=== PATIENT | female | born 1950 | race Caucasian/White ===

== ENCOUNTER 2020-12-03 15:47 | Emergency (ER) | payer MEDICARE ==
[~2020-12-03] VITALS: Ht 162.6 cm; Wt 52.0 kg
--- NOTE | 2020-12-03 16:12 | EKG ---
[address] [address] Test Date: 2020-12-03 Test Time: 16:06:54 Pat Name: PERCY HERNANDEZ Department: Room: Gender: F Transportation Aid: BETTY : 1950 Requested By: PAARG GUAJARDO Order Number: [id number] Reading MD: Tucker Guerra Measurements Intervals [place] Rate: 92 P: 90 MA: 148 QRS: 53 QRSD: 72 T: 51 QT: 320 QTc: 400 Interpretive Statements SINUS RHYTHM NO SPECIFIC ECG ABNORMALITIES RI6.02 No previous ECG available for comparison Electronically Signed On 12-04-2020 13:37:13 [employer]NAGER [employer] by Tucker Guerra
--- NOTE | 2020-12-03 16:19 | PHYS DOC ---
General Adult EDM: Chief Complaint: FATIGUE HPI: HPI: Patient is a 89-year-old female who presents with weakness and falls. Patient states fell 3 days ago at home in her kitchen and also bumped in her bathroom. Patient reports falling and hitting her head. Denies loss of consciousness. Patient denies any other injuries. States "my legs just get weak go out".Denies dizziness or Chest pain. Patient does have a history of hypotension and reports h/o falls for over 30 years. (PARAG GUAJARDO APRN) Review of Systems: Review of Systems: Constitutional: Denies fever or chills Eyes: Denies change in visual acuity HENT: Denies nasal congestion or sore throat Respiratory: Denies cough or shortness of breath Cardiovascular: Denies chest pain or edema GI: Denies abdominal pain, nausea, vomiting, bloody stools or diarrhea : Denies dysuria Musculoskeletal: Reports chronic back pain denies joint pain Integument: Denies rash Neurologic: Denies headache, focal weakness or sensory changes Endocrine: Denies polyuria or polydipsia Lymphatic: Denies swollen glands Psychiatric: Denies depression or anxiety (PARAG GUAJARDO APRN) Allergies: Allergies: Allergies Coded Allergies Type Severity Reaction Last Updated Verified levofloxacin Allergy Unknown 12/03/20 Yes Uncoded Allergies Type Severity Reaction Last Updated Verified ALL ANTIBIOTICS Allergy Unknown 12/03/20 (PARAG GUAJARDO APRN) Physical Exam: PE: Constitutional: Well developed, well nourished, no acute distress, non-toxic appearance. [] HENT: Normocephalic, atraumatic, bilateral external ears normal, oropharynx moist, no oral exudates, nose normal. [] Eyes: PERRLA, EOMI, conjunctiva normal, no discharge. [] Neck: Normal range of motion, no tenderness, supple, no stridor. [] Cardiovascular:Heart rate regular rhythm, no murmur [] Lungs & Thorax: Bilateral breath sounds clear to auscultation [] Abdomen: Bowel sounds normal, soft, no tenderness, no masses, no pulsatile masses. [] Skin: Warm, dry, no erythema, no rash. [] Back: No tenderness, no CVA tenderness. [] Extremities: No tenderness, no cyanosis, no clubbing, ROM intact, no edema. [] Neurologic: Alert and oriented X 3, normal motor function, normal sensory function, no focal deficits noted. [] Psychologic: Affect normal, judgement normal, mood normal. [] (PARAG GUAJARDO APRN) EKG: EKG: Sinus Rhythm, No specific ECG abdormalities. Intervals normal. Shepherd Normal. HR 92 BPM. Otherwise normal ECG.[] (PARAG GUAJARDO APRN) Radiology/Procedures: Radiology/Procedures: []EXAM: Head CT without contrast. HISTORY: Falls. TECHNIQUE: Computed tomographic images of the head were obtained without contrast. *One or more of the following individualized dose reduction techniques were utilized for this examination: 1. Automated exposure control. 2. Adjustment of the mA and/or kV according to patient size. 3. Use of iterative reconstruction technique. COMPARISON: None. FINDINGS: There is no acute or subacute extra-axial or intraparenchymal hemorrhage. There is no mass effect or midline shift. There is no hydrocephalus. There are areas of decreased attenuation within the cerebral white matter, nonspecific and likely related to chronic small vessel disease. There is cerebral volume loss. The visualized portions of the orbits, paranasal sinuses and mastoid air cells are unremarkable. No suspicious calvarial lesion is seen. IMPRESSION: No acute intracranial findings. Electronically signed by: Jada Mancini MD (12/03/2020 5:00 PM) [id number] XR CHEST 1V CLINICAL INDICATIONS: Weakness COMPARISON: None available. Findings: No acute lung infiltrate or pleural effusion or pulmonary edema or lung mass or pneumothorax is seen. The heart size, pulmonary vasculature, mediastinum and both coby are unremarkable. IMPRESSION: No acute radiographic abnormality is seen. Electronically signed by: Watson Rader MD (12/03/2020 4:46 PM) [id number], Without Contrast: History: Reason: abdnormal labs, FATIGUE, WEAK, MULTIPLE FALLS, H/O KIDNEY STONES / Spl. Instructions: ABDOMEN ONLY PER LAQUITA AMEZCUA / History: Comparison: None. Procedure: Axial images are obtained of the abdomen and pelvis, without IV or oral contrast. Oral Contrast: No Findings: Evaluation of solid organs is limited without contrast. Evaluation of stomach and bowel is limited without oral contrast. The stomach is collapsed and not well evaluated. There are metallic densities at the GE junction. There are surgical sutures in the small bowel. There has been prior laminectomy fusion at L2 L4. There is prominent veins in the left of the thoracic spine. Liver: There is pneumobilia. Spleen: Normal. Pancreas: Atrophic. Adrenal Glands: Normal. Kidneys: Normal. There is no free air or free fluid. There is no lymphadenopathy. The urinary bladder appears normal. There is no pericolonic inflammation identified. Impression: 1. Prominent veins of the left could be secondary to portal hypertension. 2. Pneumobilia. 3. Postsurgical changes. End impression PQRS Compliance Statement: One or more of the following individualized dose reduction techniques were utilized for this examination: 1. Automated exposure control 2. Adjustment of the mA and/or kV according to patient size 3. Use of iterative reconstruction technique Electronically signed by: Adrian Devine III, MD (12/03/2020 7:51 PM) [facility] (PARAG GUAJARDO APRN) Heart Score: HEART Score for Chest Pain: HEART Score for Chest Pain Response (Comments) Value History Slighlty/Non-Suspicious 0 ECG Normal 0 Age > 65 2 Risk Factors No Risk Factors 0 Total 2 Risk Factors: Risk Factors: DM, Current or recent (<one month) smoker, HTN, HLP, family history of CAD, obesity. Risk Scores: Score 0 - 3: 2.5% MACE over next 6 weeks - Discharge Home Score 4 - 6: 20.3% MACE over next 6 weeks - Admit for Clinical Observation Score 7 - 10: 72.7% MACE over next 6 weeks - Early Invasive Strategies (PARAG GUAJARDO APRN) Course & Med Decision Making: Course & Med Decision Making Pertinent Labs and Imaging studies reviewed. (See chart for details) [] Patient is a 89-year-old female who presents with weakness and falls. Patient states fell 3 days ago at home in her kitchen and also bumped in her bathroom. Patient reports falling and hitting her head. Denies loss of consciousness. Patient denies any other injuries. States "my legs just get weak go out".Denies dizziness or Chest pain. Patient does have a history of hypotension and reports h/o falls for over 30 years. Chest x-ray, EKG, head CT ordered Chest xray , EKG and head CT all normal. CT abdomen ordered. AST, ALT elevated. CT abdomen showed pneumobilia. No recent procedures or White count noted. Patient agrees to dc to home and contact Dr. Abdul in the morning to get a referral to GI for further evaluation. Patient nontoxic and hemodynamically stable. (PARAG GUAJARDO APRN) Dragon Disclaimer: Dragon Disclaimer: This electronic medical record was generated, in whole or in part, using a voice recognition dictation system. (PARAG GUAJARDO APRN) Departure Departure: Impression: Primary Impression: Falls Disposition: DC HOME SELF CARE/HOMELESS Condition: STABLE Referrals: PCP,NO (PCP) Patient Instructions: Fall Prevention and Home Safety, [id number] Additional Instructions: EMERGENCY DEPARTMENT GENERAL DISCHARGE INSTRUCTIONS Thank you for coming to [facility] (ED) today and trusting us with you care. We trust that you had a positivie experience in our Emergency Department. If you wish to speak to the department management, you may call the director at [phone]. YOUR FOLLOW UP INSTRUCTIONS ARE FOLLOWS: 1. Do you have a private Doctor? If you do not have a private doctor, please ask for a resource list of physicians or clinics that may be able to assist you with follow up care. 2. The Emergency Physician has interpreted your x-rays. The X-Ray specialist will also review them. If there is a change in the findings, you will be notified in 48 hours when at all possible. 3. A lab test or culture has been done, your results will be reviewed and you will be notified if you need a change in treatment. ADDITIONAL INSTRUCTIONS AND INFORMATION: 1. Your care today has been supervised by a physician who is specially trained in emergency care. Many problems require more than one evaluation for a complete diagnosis and treatment. We recommend that you schedule your follow up appointment as recommended to ensure complete treatment of you illness or injury. If you are unable to obtain follow up care and continue to have a problem, or if your condition worsens, we recommend that you return to the ED. 2. We are not able to safely determine your condition over the phone nor are we able to give sound medical advice over the phone. For these safety reasons, if you call for medical advice we will ask you to come to the ED for further evaluation. 3. If you have any questions regarding these discharge instructions please call the ED at [phone]. SAFETY INFORMATION: In the interest of safety, wellness, and injury prevention; we encourage you to wear your sealbelt, if you smoke; quite smoking, and we encourage family to use a protective helmet for bicycling and other sporting events that present an increased risk for head injury. IF YOUR SYMPTOMS WORSEN OR NEW SYMPTOMS DEVELOP, OR YOU HAVE CONCERNS ABOUT YOUR CONDITION; OR IF YOUR CONDITION WORSENS WHILE YOU ARE WAITING FOR YOUR FOLLOW UP APPOINTME NT; EITHER CONTACT YOUR PRIMARY CARE DOCTOR, THE PHYSICIAN WHOSE NAME AND NUMBER YOU WERE GIVEN, OR RETURN TO THE ED IMMEDIATELY. Attending Co-Sign Attending Co-Sign The patient was seen and interviewed as well as examined at the bedside. The chart was reviewed. The case was discussed. Agree with the plan of care. (RONDA YBARRA MD) Dragon Disclaimer This chart was dictated in whole or in part using Voice Recognition software in a busy, high-work load, and often noisy Emergency Department environment. It may contain unintended and wholly unrecognized errors or omissions. (RONDA YBARRA MD) PARAG GUAJARDO APRN Dec 03, 2020 16:19 RONDA YBARRA MD Dec 04, 2020 02:55
--- NOTE | 2020-12-03 16:48 | RAD ---
XR CHEST 1V CLINICAL INDICATIONS: Weakness COMPARISON: None available. Findings: No acute lung infiltrate or pleural effusion or pulmonary edema or lung mass or pneumothora x is seen. The heart size, pulmonary vasculature, mediastinum and both coby are unremarkable. IMPRESSION: No acute radiographic abnormality is seen. Electronically signed by: Watson Rader MD (12/03/2020 4:46 PM) [id number]
--- NOTE | 2020-12-03 17:02 | RAD ---
EXAM: Head CT without contrast. HISTORY: Falls. TECHNIQUE: Computed tomographic images of the head were obtained without contrast. *One or more of the following individualized dose reduction techniques were utilized for this examina tion: 1. Automated exposure control. 2. Adjustment of the mA and/or kV according to patient size. 3. Use of iterative reconstruction technique. COMPARISON: None. FINDINGS: There is no acute or subacute extra-axial or intraparenchymal hemorrhage. There is no mass effect or midline shift. There is no hydrocephalus. There are areas of decreased attenuation within the cerebral white matter, nonspecific and likely rel ated to chronic small vessel disease. There is cerebral volume loss. The visualized portions of the orbits, paranasal sinuses and mastoid air cells are unremarkable. No s uspicious calvarial lesion is seen. IMPRESSION: No acute intracranial findings. Electronically signed by: Jada Mancini MD (12/03/2020 5:00 PM) [id number]
[2020-12-03 17:12] LABS: BASO % 0 % (0-3); EOS # 0.1 x10^3/uL (0.0-0.7); EOS % 1 % (0-3); HEMATOCRIT 36.2 % (36.0-47.0); HEMOGLOBIN 11.7 g/dL (12.0-15.5); LYMPH # 0.3 x10^3/uL (1.0-4.8); LYMPH % 4 % (24-48); MEAN CORPUSCULAR HEMOGLOBIN 26 pg (25-35); MEAN CORPUSCULAR HGB CONC 32 g/dL (31-37); MEAN CORPUSCULAR VOLUME 80 fL (79-100); MONO # 0.4 x10^3/uL (0.0-1.1); MONO % 6 % (0-9); NEUT # 6.3 x10^3uL (1.8-7.7); NEUT % 88 % (31-73); PLATELET COUNT 117 x10^3/uL (140-400); RED BLOOD COUNT 4.55 x10^6/uL (3.50-5.40); RED CELL DISTRIBUTION WIDTH 16.5 % (11.5-14.5); WHITE BLOOD COUNT 7.1 x10^3/uL (4.0-11.0)
[2020-12-03 17:17] LABS: CALCIUM 9.1 mg/dL (8.5-10.1); CREATININE 1.3 mg/dL (0.6-1.0); GFR 40.6; POTASSIUM 4.6 mmol/L (3.5-5.1)
[2020-12-03 17:27] LABS: ALBUMIN 2.8 g/dL (3.4-5.0); ALBUMIN/GLOBULIN RATIO 0.7 (1.0-1.7); TOTAL BILIRUBIN 0.6 mg/dL (0.2-1.0)
--- NOTE | 2020-12-03 19:53 | RAD ---
Abdominal CT, Without Contrast: History: Reason: abdnormal labs, FATIGUE, WEAK, MULTIPLE FALLS, H/O KIDNEY STONES / Spl. Instruction s: ABDOMEN ONLY PER LAQUITA AMEZCUA / History: Comparison: None. Procedure: Axial images are obtained of the abdomen and pelvis, without IV or oral contrast. Oral Contrast: No Findings: Evaluation of solid organs is limited without contrast. Evaluation of stomach and bowel is limited wi thout oral contrast. The stomach is collapsed and not well evaluated. There are metallic densities at the GE junction. The re are surgical sutures in the small bowel. There has been prior laminectomy fusion at L2 L4. There is prominent veins in the left of the thoracic spine. Liver: There is pneumobilia. Spleen: Normal. Pancreas: Atrophic. Adrenal Glands: Normal. Kidneys: Normal. There is no free air or free fluid. There is no lymphadenopathy. The urinary bladder appears normal. There is no pericolonic inflammation identified. Impression: 1. Prominent veins of the left could be secondary to portal hypertension. 2. Pneumobilia. 3. Postsurgical changes. End impression PQRS Compliance Statement: One or more of the following individualized dose reduction techniques were utilized for this examinat ion: 1. Automated exposure control 2. Adjustment of the mA and/or kV according to patient size 3. Use of iterative reconstruction technique Electronically signed by: Adrian Devine III, MD (12/03/2020 7:51 PM) [facility]
[2020-12-03 20:30] VITALS: BP 124/54
[2020-12-03 21:08] LABS: ACETAMIN < 2.0 mcg/mL (10-30)
== END 2020-12-03 20:35 | disposition home or self-care (01) ==
LOC: ER 15:47
DX: R53.1 Weakness (principal); G89.29 Other chronic pain; R29.6 Repeated falls; M54.89 Other dorsalgia; Z88.1 Allergy status to other antibiotic agents; W18.39XA Other fall on same level, initial encounter; Y93.89 Activity, other specified; Y92.090 Kitchen in other non-institutional residence as the place of occurrence of the external cause; Y99.8 Other external cause status
CPT/HCPCS: 36415; 70450; 71045; 74150; 80053; 80329; 82140; 84484; 85025; 93005; 99285; G0480

== ENCOUNTER 2021-01-26 18:47 | Emergency (ER) | payer MEDICARE ==
[~2021-01-26] VITALS: Ht 162.6 cm; Wt 52.0 kg
--- NOTE | 2021-01-26 18:59 | PHYS DOC ---
Past History Past Medical History: Anxiety, High Cholesterol, Hyperthyroid, Hypotension, Kidney Stones, Other Additional Past Medical Histor: "lung problem" chronic pain Past Surgical History: Other Additional Past Surgical Histo: lung surgery Alcohol Use: None General Adult EDM: Chief Complaint: FLANK PAIN HPI: HPI: ".. I am having severe pain . .here in my left flank.. I think it might be a kidney stone.. I ve had one before.." Patient is a 71 year old female who presents with above hx and complaints severe tearing stabbing pain left flank. Patient states pain started approximately 10:30 AM but has gotten severe tonight. Patient denies any trauma. Patient denies any travel. Patient denies any intake of bad food. Patient denies any trauma. Pain is in starts in mid back left and radiates to her left groin. Patient has had 1 previous episode of kidney stone. Has had urinary tract infections in the past. Patient states symptoms are the same but more severe than previous episode of kidney stone. Patient normally follows with Dr. Abdul. Review of Systems: Review of Systems: Constitutional: Denies fever or chills Eyes: Denies change in visual acuity HENT: Denies nasal congestion or sore throat Respiratory: Denies cough or shortness of breath Cardiovascular: Denies chest pain or edema GI: Complains of left flank abdominal pain, nausea, vomiting,. Denies bloody stools or diarrhea : Denies dysuria Musculoskeletal: Complains of left flank back pain Integument: Denies rash Neurologic: Denies headache, focal weakness or sensory changes Endocrine: Denies polyuria or polydipsia Lymphatic: Denies swollen glands Psychiatric: Denies depression or anxiety Family History: Family History: Noncontributory Current Medications: Current Meds: See nursing for home meds Allergies: Allergies: Allergies Coded Allergies Type Severity Reaction Last Updated Verified levofloxacin Allergy Unknown 12/03/20 Yes Uncoded Allergies Type Severity Reaction Last Updated Verified ALL ANTIBIOTICS Allergy Unknown 12/03/20 Physical Exam: PE: Constitutional: In severe acute distress, non-toxic appearance. [] HENT: Normocephalic, atraumatic, bilateral external ears normal, oropharynx moist, no oral exudates, nose normal. [] Eyes: PERRLA, EOMI, conjunctiva normal, no discharge. Glasses Neck: Normal range of motion, no tenderness, supple, no stridor. [] Cardiovascular:Heart rate regular rhythm, no murmur [] Lungs & Thorax: Bilateral breath sounds equal at apex auscultation Has as left posterior surgery scar from pleurodesis Abdomen: Bowel sounds decreased, soft, left flank tenderness, no masses, no pulsatile masses. Old scar Skin: Warm, dry, no erythema, no rash. [] Back: No tenderness, no flank CVA tenderness. [] Extremities: No tenderness, no cyanosis, no clubbing, ROM intact, no edema. No psoas Neurologic: Alert and oriented X 3, normal motor function, normal sensory function, no focal deficits noted. [] Psychologic: Affect anxious, judgement normal, mood normal. [] EKG: EKG: [] Radiology/Procedures: Radiology/Procedures: [][address] [address] IMAGING REPORT Signed PATIENT: PERCY HERNANDEZACCOUNT: [id number] : 1950 LOCATION: ER AGE: 71 SEX: F EXAM STATUS: REG ER ORD. PHYSICIAN: RONDA YBARRA MD REASON: flank pain , hx stone, hx. pleurodesis left side PROCEDURE: CT ABDOMEN PELVIS WO CONTRAST Exam: CT of abdomen and pelvis without contrast INDICATION: Flank pain, history of stone TECHNIQUE: Sequential axial images through the abdomen and pelvis obtained without IV contrast. Sagittal and coronal reformatted images were reconstructed from the axial data and reviewed. Comparisons: None FINDINGS: Heart size is normal. No pericardial effusion. Visualized lung bases are clear. No pleural effusion. Evaluation of solid organs is limited secondary to noncontrast technique. Liver, spleen, pancreas and adrenals are unremarkable. Gallbladder surgically absent. There is moderate left-sided hydronephrosis. There is a 5 mm calculus at the distal left ureter. Several nonobstructing left renal calculi are noted. Bladder is partially distended and not well evaluated. Uterus is absent. No abnormal adnexal mass. Large and small bowel are unremarkable. Appendix is nonidentified. No free intra-abdominal air or fluid. No obstruction. Abdominal aorta has a normal course and caliber. No enlarged intra-abdominal lymph nodes are identified. No suspicious osseous lesions or acute fractures. IMPRESSION: 1. A 5 mm calculus the distal left ureter with moderate left-sided hydronephrosis and perinephric stranding. 2. Several nonobstructing left renal calculi noted. Exposure: One or more of the following in the visualized dose reduction techniques were utilized for this examination: 1. Automated exposure control 2. Adjustment of the MA and/or KV according to patient size 3. Use of iterative of reconstructive technique Electronically signed by: Jere Lindsay MD (01/26/2021 7:53 PM) [facility] DICTATED AND SIGNED BY: JERE LINDSAY MD DATE: 01/26/211950 CC: RONDA YBARRA MD; ALESIA ABDUL ~MTH0 [address] [place] [id number] IMAGING REPORT Signed PATIENT: PERCY HERNANDEZACCOUNT: [id number] : 1950 LOCATION: ER AGE: 71 SEX: F EXAM STATUS: REG ER ORD. PHYSICIAN: RONDA YBARRA MD REASON: pain PROCEDURE: ACUTE ABDOMEN SERIES PROCEDURE: XR ABDOMEN COMP ACUTE STUDY DATE: 01/26/2021 CLINICAL INDICATION / HISTORY: Reason: pain / Spl. Instructions: / History: . TECHNIQUE: Upright PA chest, supine and upright films of the abdomen were obtained. COMPARISON: Abdomen and pelvis CT of 12/03/2020 FINDINGS: AP view the chest reveals the lungs to be clear. Cardiac and mediastinal silhouette are unremarkable. No free air is identified below the diaphragms. Two views of the abdomen show a nonspecific bowel gas pattern with some loops of small bowel showing borderline distention. There are sutures in the upper abdomen compatible with previous bowel surgery. The bones show posterior decompressive surgical changes in the lumbar spine as well as glo and pedicle screw construct posterior fusion hardware. Stimulator in the right sacrum incidentally noted. No destructive osseous lesions. IMPRESSION: No acute findings in the chest. Nonspecific bowel gas pattern compatible with previous bowel surgery. Electronically signed by: Terrell Ferraro MD (01/26/2021 8:02 PM) [facility] DICTATED AND SIGNED BY: TERRELL FERRARO MD DATE: 01/26/211957 CC: RONDA YBARRA MD; ALESIA ABDUL ~MTH0 0 Heart Score: Risk Factors: Risk Factors: DM, Current or recent (<one month) smoker, HTN, HLP, family history of CAD, obesity. Risk Scores: Score 0 - 3: 2.5% MACE over next 6 weeks - Discharge Home Score 4 - 6: 20.3% MACE over next 6 weeks - Admit for Clinical Observation Score 7 - 10: 72.7% MACE over next 6 weeks - Early Invasive Strategies Course & Med Decision Making: Course & Med Decision Making Pertinent Labs and Imaging studies reviewed. (See chart for details) Patient push fluids. Patient take Tylenol and ibuprofen for pain. Patient may take Vicoprofen up to 4 times a day for marked pain. Patient take Zofran 8 mg up to 4 times a day for nausea and vomiting. Patient take Keflex 500 mg 3 times a day. Patient follow-up with her urologist. Patient follow-up urine culture. Patient follow-up primary care. Patient review ED work-up. Patient currently electing to go home. Patient return if any concerns. Follow-up pending cultures. Impression: 1. Left flank abdomen pain 2. Distal renal stone with hydronephrosis 3. Renal insufficiency elevated BUN 24 creatinine 1.6 4. Elevated alk phos and LFTs alk phos 141, AST 75, ALT 71 5. UTI 6. Mild leukocytosis 11.8 [] Dragon Disclaimer: Dragon Disclaimer: This electronic medical record was generated, in whole or in part, using a voice recognition dictation system. Departure Departure: Referrals: ALESIA ABDUL (PCP) Scripts Fluconazole (DIFLUCAN) 100 Mg Tablet 100 MG PO DAILY for post antibiotics for 3 Days, #3 TAB Prov: RONDA YBARRA MD 01/26/21 Hydrocodone/Ibuprofen (HYDROCODONE-IBUPROFEN 7.5-200 ) 1 Each Tablet 1 TAB PO PRN Q6HRS PRN for PAIN, #30 TAB 0 Refills Prov: RONDA YBARRA MD 01/26/21 Cephalexin (KEFLEX) 750 Mg Capsule 750 MG PO TID for uti for 7 Days, #21 CAP Prov: RONDA YBARRA MD 01/26/21 Tamsulosin Hcl (FLOMAX) 0.4 Mg Cap.er.24h 0.4 MG PO HS for stone, #30 CAP.SR Prov: RONDA YBARRA MD 01/26/21 Ondansetron Hcl (ZOFRAN) 4 Mg Tablet 8 MG PO QIDPRN PRN for NAUSEA/VOMITING, #30 TAB Prov: RONDA YBARRA MD 01/26/21 Dragon Disclaimer This chart was dictated in whole or in part using Voice Recognition software in a busy, high-work load, and often noisy Emergency Department environment. It may contain unintended and wholly unrecognized errors or omissions. Dragon Disclaimer This chart was dictated in whole or in part using Voice Recognition software in a busy, high-work load, and often noisy Emergency Department environment. It may contain unintended and wholly unrecognized errors or omissions. RONDA YBARRA MD Jan 26, 2021 18:59
[2021-01-26] MEDS ORDERED: FAMOTIDINE 20 MG/2 ML VIAL IVP ONE (19:15)
[2021-01-26] MEDS ORDERED: KETOROLAC 30 MG/ML VIAL. IVP ONE (19:15)
[2021-01-26] MEDS ORDERED: IV RINGERS SOLUTION,LACTATED 1,000 ML IV SCH (19:15)
[2021-01-26] MEDS ORDERED: ONDANSETRON PF 4 MG/2 ML VIAL. IVP ONE (19:15)
[2021-01-26] MEDS ORDERED: MORPHINE SULFATE 10 MG/ML SYRINGE. SQ ONE (19:15)
--- NOTE | 2021-01-26 19:56 | RAD ---
Exam: CT of abdomen and pelvis without contrast INDICATION: Flank pain, history of stone TECHNIQUE: Sequential axial images through the abdomen and pelvis obtained without IV contrast. Sagit elysia and coronal reformatted images were reconstructed from the axial data and reviewed. Comparisons: None FINDINGS: Heart size is normal. No pericardial effusion. Visualized lung bases are clear. No pleural effusion. Evaluation of solid organs is limited secondary to noncontrast technique. Liver, spleen, pancreas and adrenals are unremarkable. Gallbladder surgically absent. There is moderate left-sided hydronephrosis. There is a 5 mm calculus at the distal left ureter. Tova ral nonobstructing left renal calculi are noted. Bladder is partially distended and not well evaluated. Uterus is absent. No abnormal adnexal mass. Large and small bowel are unremarkable. Appendix is nonidentified. No free intra-abdominal air or flu id. No obstruction. Abdominal aorta has a normal course and caliber. No enlarged intra-abdominal lymph nodes are identified. No suspicious osseous lesions or acute fractures. IMPRESSION: 1. A 5 mm calculus the distal left ureter with moderate left-sided hydronephrosis and perinephric st randing. 2. Several nonobstructing left renal calculi noted. Exposure: One or more of the following in the visualized dose reduction techniques were utilized for this examination: 1. Automated exposure control 2. Adjustment of the MA and/or KV according to patient size 3. Use of iterative of reconstructive technique Electronically signed by: Jere Ambrose MD (01/26/2021 7:53 PM) [facility]
[2021-01-26 20:00] LABS: BASO % 0 % (0-3); EOS # 0.1 x10^3/uL (0.0-0.7); EOS % 0 % (0-3); HEMATOCRIT 43.7 % (36.0-47.0); HEMOGLOBIN 13.7 g/dL (12.0-15.5); LYMPH # 0.4 x10^3/uL (1.0-4.8); LYMPH % 4 % (24-48); MEAN CORPUSCULAR HEMOGLOBIN 26 pg (25-35); MEAN CORPUSCULAR HGB CONC 31 g/dL (31-37); MEAN CORPUSCULAR VOLUME 81 fL (79-100); MONO # 0.7 x10^3/uL (0.0-1.1); MONO % 6 % (0-9); NEUT # 10.5 x10^3uL (1.8-7.7); NEUT % 90 % (31-73); PLATELET COUNT 143 x10^3/uL (140-400); RED BLOOD COUNT 5.37 x10^6/uL (3.50-5.40); RED CELL DISTRIBUTION WIDTH 16.8 % (11.5-14.5); WHITE BLOOD COUNT 11.8 x10^3/uL (4.0-11.0)
--- NOTE | 2021-01-26 20:04 | RAD ---
PROCEDURE: XR ABDOMEN COMP ACUTE STUDY DATE: 01/26/2021 CLINICAL INDICATION / HISTORY: Reason: pain / Spl. Instructions: / History: . TECHNIQUE: Upright PA chest, supine and upright films of the abdomen were obtained. COMPARISON: Abdomen and pelvis CT of 12/03/2020 FINDINGS: AP view the chest reveals the lungs to be clear. Cardiac and mediastinal silhouette are u nremarkable. No free air is identified below the diaphragms. Two views of the abdomen show a nonspec ific bowel gas pattern with some loops of small bowel showing borderline distention. There are suture s in the upper abdomen compatible with previous bowel surgery. The bones show posterior decompressiv e surgical changes in the lumbar spine as well as glo and pedicle screw construct posterior fusion good rdware. Stimulator in the right sacrum incidentally noted. No destructive osseous lesions. IMPRESSION: No acute findings in the chest. Nonspecific bowel gas pattern compatible with previous oscar wel surgery. Electronically signed by: Jessy Ferraro MD (01/26/2021 8:02 PM) [facility] [place]
[2021-01-26 20:09] LABS: CALCIUM 8.8 mg/dL (8.5-10.1); CREATININE 1.6 mg/dL (0.6-1.0); GFR 31.9; POTASSIUM 4.7 mmol/L (3.5-5.1)
[2021-01-26 20:15] LABS: ALBUMIN 3.6 g/dL (3.4-5.0); DIRECT BILIRUBIN 0.1 mg/dL (0.0-0.2); TOTAL BILIRUBIN 0.3 mg/dL (0.2-1.0); TOTAL PROTEIN 7.1 g/dL (6.4-8.2)
[2021-01-26] MEDS ORDERED: ONDA4TAB7 PO (21:12)
[2021-01-26 21:13] LABS: BILIRUBIN,URINE NEG (NEG); CLARITY,URINE CLEAR; COLOR,URINE YELLOW; GLUCOSE,URINE NEG (NEG); NITRITE,URINE NEG (NEG)
[2021-01-26] MEDS ORDERED: HYDR-1179 PO (21:14)
[2021-01-26] MEDS ORDERED: CEPH750C9 PO (21:14)
[2021-01-26] MEDS ORDERED: TAMS0.4C97 PO (21:14)
[2021-01-26 21:15] LABS: BACTERIA,URINE MOD /HPF (0-FEW); RBC,URINE OCC /HPF (0-2); SQUAMOUS EPITHELIAL CELL,UR FEW /LPF
[2021-01-26] MEDS ORDERED: FLUC100T7 PO (21:18)
[2021-01-26 21:20] VITALS: BP 119/56
[2021-01-26] MEDS ORDERED: TAMSULOSIN 0.4 MG CAP.ER.24H. PO ONE (21:30)
[2021-01-26] MEDS ORDERED: CEPHALEXIN 250 MG CAPSULE PO ONE ×3 (21:30)
== END 2021-01-26 21:33 | disposition home or self-care (01) ==
LOC: ER 18:47
DX: N13.2 Hydronephrosis with renal and ureteral calculous obstruction (principal); N39.0 Urinary tract infection, site not specified; N28.9 Disorder of kidney and ureter, unspecified; R79.89 Other specified abnormal findings of blood chemistry; D72.829 Elevated white blood cell count, unspecified; R11.2 Nausea with vomiting, unspecified; F41.9 Anxiety disorder, unspecified; E78.00 Pure hypercholesterolemia, unspecified; E05.90 Thyrotoxicosis, unspecified without thyrotoxic crisis or storm; G89.29 Other chronic pain; Z87.442 Personal history of urinary calculi; Z88.1 Allergy status to other antibiotic agents
CPT/HCPCS: 36415; 74022; 74176; 80048; 80076; 81001; 82150; 83690; 85025; 85610; 85730; 87086; 96361; 96372; 96374; 96375; 99285; J1885; J2270; J2405; J3490; J7120

== ENCOUNTER 2021-03-10 09:57 | Inpatient (IN) | payer MEDICARE ==
[~2021-03-10] VITALS: Ht 162.6 cm; Wt 53.8 kg
[~2021-03-10 09:57] MED LIST: CEPH750C9 PO; FLUC100T7 PO; HYDR-1179 PO; ONDA4TAB7 PO; TAMS0.4C97 PO
--- NOTE | 2021-03-10 10:37 | RAD ---
Exam performed: One view chest. Indication: Reason: chest pain after cpr / Spl. Instructions: / History: Date of Service: 03/10/2021 10:11 AM Comparison: One view chest from 12/03/2020. Single AP upright portable view chest findings: Cardiomediastinal silhouette is within limits of normal. No acute infiltrates or pneumothorax is det ected. There is minimal blunting of the left costophrenic angle, likely tiny left effusion. Bilateral spinal rods seen. Impression: Minimal blunting of the left costophrenic angle likely tiny effusion Electronically signed by: Janae Cortes MD (03/10/2021 10:35 AM) [facility]
[2021-03-10 11:06] LABS: BASO # 0.1 x10^3/uL (0.0-0.2); BASO % 1 % (0-3); EOS # 0.1 x10^3/uL (0.0-0.7); EOS % 1 % (0-3); HEMATOCRIT 38.5 % (36.0-47.0); HEMOGLOBIN 12.1 g/dL (12.0-15.5); LYMPH # 1.9 x10^3/uL (1.0-4.8); LYMPH % 16 % (24-48); MEAN CORPUSCULAR HEMOGLOBIN 25 pg (25-35); MEAN CORPUSCULAR HGB CONC 31 g/dL (31-37); MEAN CORPUSCULAR VOLUME 81 fL (79-100); MONO # 0.8 x10^3/uL (0.0-1.1); MONO % 6 % (0-9); NEUT # 9.2 x10^3uL (1.8-7.7); NEUT % 76 % (31-73); PLATELET COUNT 229 x10^3/uL (140-400); RED BLOOD COUNT 4.75 x10^6/uL (3.50-5.40); RED CELL DISTRIBUTION WIDTH 16.4 % (11.5-14.5); WHITE BLOOD COUNT 12.1 x10^3/uL (4.0-11.0)
[2021-03-10 11:07] LABS: CALCIUM 9.3 mg/dL (8.5-10.1); CREATININE 1.6 mg/dL (0.6-1.0); GFR 31.9; POTASSIUM 3.5 mmol/L (3.5-5.1)
[2021-03-10 11:13] LABS: ALBUMIN 3.8 g/dL (3.4-5.0); ALBUMIN/GLOBULIN RATIO 1.2 (1.0-1.7); TOTAL BILIRUBIN 0.3 mg/dL (0.2-1.0); TOTAL PROTEIN 7.1 g/dL (6.4-8.2)
[2021-03-10 11:22] LABS: BILIRUBIN,URINE NEG (NEG); CLARITY,URINE CLOUDY; COLOR,URINE YELLOW; GLUCOSE,URINE NEG (NEG)
[2021-03-10 11:23] LABS: BACTERIA,URINE MANY /HPF (0-FEW); NITRITE,URINE NEG (NEG); UROBILINOGEN,URINE 0.2 mg/dL (0.2 mg/dL); WBC,URINE >40 /HPF (0-4)
[2021-03-10] MEDS ORDERED: cefTRIAXone SODIUM 1 GM VIAL ONE (11:59)
[2021-03-10] MEDS ORDERED: IV NORMAL SALINE 50ML 50 ML ONE (11:59)
--- NOTE | 2021-03-10 12:01 | PHYS DOC ---
Past History Past Medical History: Anxiety, High Cholesterol, Hypothyroid, Hypotension, Kidney Stones, Other Additional Past Medical Histor: "lung problem" chronic pain , CHRONIC BACK, NEUROPATHY, BLOOD CLOT Past Surgical History: Hysterectomy, Other Additional Past Surgical Histo: lung surgery, PARTIAL STOMACH REMOVAL, BACK SURGERIES X 4 Alcohol Use: Rarely Adult General Chief Complaint Chief Complaint: SYNCOPE HPI HPI Patient is a 71-year-old female presenting via EMS [facility] for suspect unresponsive episode. Per EMS, patient was found after breakfast to be unresponsive by nursing staff development coordinator. It is unknown if patient had a pulse and/or was breathing and so, chest compressions were started. Patient sustained approximately 10-20 chest compressions before waking up and yelling at said staff member. Due to the episode, EMS was called. On arrival, patient hemodynamically stable. States she has chest pain from compressions but has also sided suprapubic pressure and dysuria for past x4 days in addition to chronic lower back pain. Denies any recent med changes, fever, syncope, shortness of breath, abdominal pain, neurologic symptoms, changes in motor or sensory function Review of Systems Review of Systems Fourteen body systems of review of systems have been reviewed. See HPI for pertinent positives and negative responses, other franco all other systems are negative, non-pertinent or non-contributory Current Medications Current Medications Current Medications Medications (Trade) Dose Ordered Sig/Jose Start Time Stop Time Status Last Admin Dose Admin Ceftriaxone Sodium 1 gm/ Sodium Chloride 50 ml @ 100 mls/hr 1X ONCE 03/10/21 11:45 03/10/21 12:14 Ceftriaxone Sodium (Rocephin) 1 gm STK-MED ONCE 03/10/21 11:59 03/10/21 12:00 DC Sodium Chloride 50 ml @ As Directed STK-MED ONCE 03/10/21 11:59 03/10/21 12:00 DC Allergies Allergies Allergies Coded Allergies Type Severity Reaction Last Updated Verified Sulfa (Sulfonamide Antibiotics) Allergy Intermediate 01/26/21 Yes levofloxacin Allergy Intermediate 01/26/21 Yes Physical Exam Physical Exam Constitutional: Pt is oriented to person, place, and time. Pt appears well-developed and well- nourished. HEENT: Head: Normocephalic and atraumatic. External ears unremarkable, no hemotympanum Conjunctivae and EOM are normal. Pupils are equal, round, and reactive to light. Oropharynx is clear and dry. No hematomas or lacerations or abrasions to face or scalp OP clear, no blood, no malocclusion, dentition intact Nares clear, no nasal septal hematoma Midface stable Neck: C-spine midline nontender, no step-offs Cardiovascular: Normal rate, regular rhythm and normal heart sounds. Chest wall intact, no flail chest, mild tenderness to palpation over sternum Pulmonary/Chest: Effort normal and breath sounds normal. No respiratory distress. No wheezes. CTA bilaterally Abdominal: Soft. Bowel sounds are normal. Pt exhibits no distension. There is suprapubic tenderness with palpation without any other abnormalities, no guarding or rebound Musculoskeletal: No bony tenderness to extremities, no deformities, full ROM extremities Chest wall stable Pelvis stable and non-tender No vertebral TTP and spine without stepoffs Neurological: Pt is alert and oriented to person, place, and time. Moving all extremities willfully, able to wiggle all fingers and toes Alert and oriented x 3 Motor and sensory function grossly intact Skin: Skin is warm and dry. No abrasions, no lacerations Psychiatric: Behavior is appropriate for situation Current Patient Data Vital Signs Vital Signs Date Time Temp Pulse Resp B/P (MAP) Pulse Ox O2 Delivery O2 Flow Rate FiO2 03/10/21 10:00 97.9 91 20 101/70 (80) 99 Room Air Lab Results Laboratory Tests Test 03/10/21 10:35 03/10/21 10:50 White Blood Count 12.1 x10^3/uL (4.0-11.0) H Red Blood Count 4.75 x10^6/uL (3.50-5.40) Hemoglobin 12.1 g/dL (12.0-15.5) Hematocrit 38.5 % (36.0-47.0) Mean Corpuscular Volume 81 fL (79-100) Mean Corpuscular Hemoglobin 25 pg (25-35) Mean Corpuscular Hemoglobin Concent 31 g/dL (31-37) Red Cell Distribution Width 16.4 % (11.5-14.5) H Platelet Count 229 x10^3/uL (140-400) Neutrophils (%) (Auto) 76 % (31-73) H Lymphocytes (%) (Auto) 16 % (24-48) L Monocytes (%) (Auto) 6 % (0-9) Eosinophils (%) (Auto) 1 % (0-3) Basophils (%) (Auto) 1 % (0-3) Neutrophils # (Auto) 9.2 x10^3uL (1.8-7.7) H Lymphocytes # (Auto) 1.9 x10^3/uL (1.0-4.8) Monocytes # (Auto) 0.8 x10^3/uL (0.0-1.1) Eosinophils # (Auto) 0.1 x10^3/uL (0.0-0.7) Basophils # (Auto) 0.1 x10^3/uL (0.0-0.2) Sodium Level 147 mmol/L (136-145) H Potassium Level 3.5 mmol/L (3.5-5.1) Chloride Level 109 mmol/L (98-107) H Carbon Dioxide Level 28 mmol/L (21-32) Anion Gap 10 (6-14) Blood Urea Nitrogen 26 mg/dL (7-20) H Creatinine 1.6 mg/dL (0.6-1.0) H Estimated GFR (Cockcroft-Gault) 31.9 BUN/Creatinine Ratio 16 (6-20) Glucose Level 67 mg/dL (70-99) L Calcium Level 9.3 mg/dL (8.5-10.1) Total Bilirubin 0.3 mg/dL (0.2-1.0) Aspartate Amino Transferase (AST) 33 U/L (15-37) Alanine Aminotransferase (ALT) 42 U/L (14-59) Alkaline Phosphatase 177 U/L (46-116) H Troponin I Quantitative < 0.017 ng/mL (0-0.055) Total Protein 7.1 g/dL (6.4-8.2) Albumin 3.8 g/dL (3.4-5.0) Albumin/Globulin Ratio 1.2 (1.0-1.7) Urine Collection Type Unknown Urine Color Yellow Urine Clarity Cloudy Urine pH 5.5 Urine Specific [place] 1.010 Urine Protein Neg (NEG-TRACE) Urine Glucose (UA) Neg mg/dL (NEG) Urine Ketones (Stick) Neg mg/dL (NEG) Urine Blood Trace (NEG) Urine Nitrite Neg (NEG) Urine Bilirubin Neg (NEG) Urine Urobilinogen Dipstick 0.2 mg/dL (0.2 mg/dL) Urine Leukocyte Esterase Large (NEG) Urine RBC 1-2 /HPF (0-2) Urine WBC >40 /HPF (0-4) Urine Bacteria Many /HPF (0-FEW) EKG EKG EKG ordered and interpreted by myself at 1100 hrs. as sinus rhythm at 90 bpm, unremarkable intervals, no axis deviation, no acute ischemic findings, no STEMI Radiology/Procedures Radiology/Procedures Exam performed: One view chest. Indication: Reason: chest pain after cpr / Spl. Instructions: / History: Date of Service: 03/10/2021 10:11 AM Comparison: One view chest from 12/03/2020. Single AP upright portable view chest findings: Cardiomediastinal silhouette is within limits of normal. No acute infiltrates or pneumothorax is detected. There is minimal blunting of the left costophrenic angle, likely tiny left effusion. Bilateral spinal rods seen. Impression: Minimal blunting of the left costophrenic angle likely tiny effusion Electronically signed by: Janae Cortes MD (03/10/2021 10:35 AM) [facility] C/O Chest Pain: Yes HEART Score for Chest Pain: HEART Score for Chest Pain Response (Comments) Value History Slighlty/Non-Suspicious 0 ECG Normal 0 Age > 65 2 Risk Factors >3 Risk Factors or Hx CAD 2 Troponin < Normal Limit 0 Total 4 Risk Factors: Risk Factors: DM, Current or recent (<one month) smoker, HTN, HLP, family history of CAD, obesity. Risk Scores: Risk Factors: DM, Current or recent (<one month) smoker, HTN, HLP, family history of CAD, obesity. Course & Med Decision Making Course & Med Decision Making Hypotensive otherwise hemodynamically stable patient presenting with suspected HPI for unresponsive episode and UTI-like symptoms, physical exam nonconcerning for emergent/surgical pathology Comprehensive ER work-up obtained and significant for UTI, 1 g IV Rocephin ott bsequently administered. 1 L IV normal saline started Patient reassessed numerous times while in ER by healthcare providers, although no obvious deterioration in status, joint decision between myself and patient to admit for treatment of UTI and observation given questionable unresponsive episode I contacted on-call hospitalist and reviewed need for admission, he also agreed need for admission and accepted patient under his care. I have updated patient on proposed plan of care that involved hospital admission and she remained amenable. All questions and concerns addressed prior to admission Critical Care Time This patient required critical care. Due to the fact that the patient required a significant amount of one on one physician - patient contact time, ordering and review of studies, arranging urgent treatment with development of a management plan, evaluation of patients response to treatment with frequent reassessments, and discussions with other providers this patient required 45 minutes of critical care time. Critical care time was indicated due to the inherent instability and/or potential for instability in this patient. The critical care time that is allocated to this patient is above and beyond any time spent on any other billable procedures performed on this patient. Dragon Disclaimer Dragon Disclaimer This electronic medical record was generated, in whole or in part, using a voice recognition dictation system. Departure Departure: Impression: Primary Impression: UTI (urinary tract infection) Additional Impression: Delirium due to another medical condition, acute, hypoactive Disposition: 09 ADMITTED INPT THIS HOSP Admitting Physician: Sloane Hart Condition: STABLE Referrals: ALESIA FRIEDMAN (PCP) Problem Qualifiers ALONZO TAYLOR DO Mar 10, 2021 12:01
--- NOTE | 2021-03-10 12:35 | EKG ---
[address] [address] Test Date: 2021-03-10 Test Time: 10:55:45 Pat Name: PERCY HERNANDEZ Department: Room: Gender: F Pay Station Attendant: NIGEL : 1950 Requested By: ALONZO TAYLOR Order Number: [id number] Reading MD: Jaycob Muniz MD Measurements Intervals [place] Rate: 90 P: -90 AR: 148 QRS: 64 QRSD: 84 T: 69 QT: 354 QTc: 437 Interpretive Statements SINUS RHYTHM Electronically Signed On 03-11-2021 12:34:33 CDT by Jaycob Muniz MD
[2021-03-10] MEDS ORDERED: ONDANSETRON PF 4 MG/2 ML VIAL. IVP ONE (12:45)
[2021-03-10] MEDS ORDERED: IV NORMAL SALINE 1,000ML 1,000 ML IV ONE (12:45)
[2021-03-10 13:27] VITALS: BP 122/81
[2021-03-10] MEDS ORDERED: CRAN1CAP12 PO (14:11)
[2021-03-10] MEDS ORDERED: ASPI-630 PO (14:11)
[2021-03-10] MEDS ORDERED: POLY119P19 PO (14:11)
[2021-03-10] MEDS ORDERED: LEVO50TA PO (14:11)
[2021-03-10] MEDS ORDERED: SUMA50TA3 PO (14:11)
[2021-03-10] MEDS ORDERED: VENL150C PO (14:11)
[2021-03-10] MEDS ORDERED: LIOT5TAB4 PO (14:11)
[2021-03-10] MEDS ORDERED: TEMA15CA6 PO (14:11)
[2021-03-10] MEDS ORDERED: GABA800T PO (14:11)
[2021-03-10] MEDS ORDERED: MIDO10TA PO (14:11)
[2021-03-10] MEDS ORDERED: TORS10TA3 PO (14:11)
[2021-03-10] MEDS ORDERED: TRAZ150T49 PO (14:11)
[2021-03-10] MEDS ORDERED: POTA10TA5 PO (14:11)
[2021-03-10] MEDS ORDERED: CHOL200010 PO (14:11)
[2021-03-10] MEDS ORDERED: TIZA4TAB2 PO (14:11)
[2021-03-10] MEDS ORDERED: ATOR10TA60 PO (14:11)
--- NOTE | 2021-03-10 15:30 | NUR ---
The patient, PERCY HERNANDEZ, 71 y/o, F admitted by JADEN HICKS MD, was given written information regarding hospital policies, unit procedures and contact persons. Valuables were checked and left with patient.
[2021-03-10] MEDS ORDERED: HYDROcodon/IBUPROFEN 7.5/200MG 1 TAB TABLET PO PRN (17:00)
[2021-03-10] MEDS ORDERED: tiZANidine 4 MG TABLET. PO PRN (17:00)
[2021-03-10] MEDS ORDERED: ONDANSETRON ODT 4 MG TAB.RAPDIS PO PRN (17:30)
--- NOTE | 2021-03-10 18:23 | HP ---
ADMIT DATE: 03/10/2021 HISTORY OF PRESENT ILLNESS: The patient is a 71-year-old female patient, who apparently was unresponsive while at the chair. She apparently sustained about 20 chest compressions before waking up and yelling at staff. She apparently has multiple syncopal episodes. In the New Year, she said she has 3 syncopal episodes and the second day, she had 2, and apparently, she has had problem with this before and apparently has had Holter monitors and other devices to monitor her heart, although nobody found anything treatable according to her. When I saw her this afternoon, she denied any complaint. She was extensively investigated in the Emergency Room and had had lab work, which showed mild leukocytosis. Her chemistry was unremarkable. She has so far 2 sets of cardiac enzymes that were negative. Her urinalysis showed the patient has large amount of leukocyte esterase and more than 40 wbc's. Currently, she has neurogenic bladder requiring self-catheterization. The patient was started on IV fluid and ceftriaxone and was admitted for further evaluation and treatment. PAST MEDICAL HISTORY: Significant for chronic hypotension, hyperlipidemia, chronic kidney disease stage 3A, and neurogenic bladder for the last 11 years requiring self-catheterization. She has a history of hepatitis B, hypothyroidism, gastroesophageal reflux disease, and generalized osteoarthritis. PAST SURGICAL HISTORY: Significant for 3 gastric surgeries. She has bilateral cataract extraction and tonsillectomy. According to her, she has 2 nose surgeries, appendectomy, cholecystectomy, total abdominal hysterectomy, bilateral salpingo-oophorectomy, arthroscopic surgery for both knees, and 5 back surgeries and also what seemed to be thoracotomy and pleurodesis on the left side. She also has a history of nephrolithiasis that required lithotripsy. ALLERGIES: SHE IS ALLERGIC TO PENICILLIN, SULFA DRUGS, CEPHALEXIN, AND LEVOFLOXACIN. MEDICATIONS: She is currently on following medications: She is on fluconazole 100 mg once a day, midodrine 10 mg 3 times a day, tamsulosin 0.4 mg daily, tizanidine 2 mg every 8 hours, atorvastatin calcium 10 mg at bedtime, aspirin 81 mg once a day, hydrocodone/ibuprofen 7.5/200 one tablet every 6 hours, gabapentin 800 mg 3 times a day, trazodone 150 mg at bedtime, venlafaxine or Effexor XR 150 mg daily. She is on temazepam 15 mg at bedtime. She is on sumatriptan succinate 50 mg once a day, potassium chloride 10 mEq twice a day, torsemide 10 mg daily, polyethylene glycol 17 grams daily, and ondansetron 4 mg 4 times a day as needed for nausea and vomiting. She is on levothyroxine 50 mcg daily. She is on liothyronine 5 mcg once a day, vitamin D 50 mcg once a day, cranberry extract, vitamin C, AZO cranberry softgel 1 capsule once a day. FAMILY HISTORY: She has one brother, but had of melanoma at the age of 62. Her father at age of 83 because of the liver cancer and bleeding. Mother at the age of 75 because of complication of Alzheimer's disease. SOCIAL HISTORY: She is , has no children. She does not smoke, drink alcohol, or use recreational drugs. She is retired after working many jobs. REVIEW OF SYSTEMS: As per history of present illness. PHYSICAL EXAMINATION: GENERAL: On arrival to the Emergency Room, she looked well and was clearly in no apparent respiratory distress. No pallor, jaundice, cyanosis, or thyromegaly. No jugular venous distension. No lower limb edema. VITAL SIGNS: Her heart rate was 91, blood pressure was 101/70, respirations were 20, oxygen saturation was 99%. HEAD, EYES, EARS, NOSE AND THROAT: Showed normocephalic, atraumatic. NECK: Supple. HEART: Showed normal first and second heart sounds. No gallop, rub or murmur. CHEST: Showed central trachea, equal bilateral chest expansion, air entry, vesicular sounds. No crepitation or rhonchi. ABDOMEN: Distended, soft, nontender. No guarding or rigidity. No organomegaly. All hernial orifices intact. Bowel sounds normal. NEUROLOGIC: She is awake, alert, responding appropriately. All cranial nerves intact. EXTREMITIES: She moves extremities without difficulty. She ambulates normally without assistance or assistive devices. LABORATORY DATA: Her lab work on arrival to the Emergency Room showed that her urine was yellow, cloudy with pH of 5.5, specific gravity of 1.010. The urine was negative for protein, glucose, and ketones. There was trace of blood, negative for nitrite and negative for bilirubin. There was large amount of leukocyte esterase. There were 1-2 rbc's, more than 40 wbc's, and too many bacteria. Her white cell count was 12,000, hemoglobin 12, hematocrit 38, MCV 81 and platelet count 229,000. Her chemistry showed a serum sodium 147, potassium 3.5, chloride 109, bicarbonate 28, anion gap of 10, BUN 26, creatinine 1.6. Estimated GFR was 31 mL per minute. Her glucose was 67, calcium was 9.3. Total bilirubin, AST, ALT, alkaline phosphatase slightly elevated. She has 2 sets of cardiac enzyme, both of them showed troponin to be less than 0.017. Her total protein was 7.1, albumin was 3.8. ASSESSMENT AND PLAN: In summary, this is a 71-year-old female patient, who was admitted with what seemed to be syncopal episode. The patient was admitted with a syncopal episode, and she was found to have urinary tract infection. She has neurogenic bladder requiring self-catheterization. She has obviously long history of hypotension for which she is on midodrine and had had multiple syncopal episodes before. Other medical problems include: A. Hyperlipidemia B. Chronic kidney disease stage 3A. C. History of hepatitis B. D. Hypothyroidism. E. Gastroesophageal reflux disease. F. Osteoarthritis. We will continue with IV fluid. I will continue all her medications, although I will hold on her torsemide. I would consult also the lens marker, as she might require an event monitor. AJDEN HICKS MD DR: JERAD/gigi JOB#: [id number] / [id number]
[2021-03-10 20:14] VITALS: BP 114/67
[2021-03-10] MEDS: SUMAtriptan SUCCINATE 50 MG TABLET PO PRN (20:23)
[2021-03-10] MEDS: MIDODRINE 5 MG TABLET PO SCH (20:24)
[2021-03-10] MEDS ORDERED: traZODone 150 MG TABLET. PO SCH (21:00)
[2021-03-10] MEDS ORDERED: ATORVASTATIN CALCIUM 10 MG TABLET. PO SCH (21:00)
[2021-03-10] MEDS ORDERED: GABAPENTIN 100 MG CAPSULE. PO SCH (21:00)
[2021-03-10] MEDS ORDERED: GABAPENTIN 400 MG CAPSULE. PO SCH (21:00)
[2021-03-10] MEDS ORDERED: TAMSULOSIN 0.4 MG CAP.ER.24H. PO SCH (21:00)
[2021-03-10] MEDS ORDERED: TEMAZEPAM 15 MG CAPSULE PO SCH (21:00)
--- NOTE | 2021-03-11 04:39 | NUR ---
[facility] cardio consulted called at this time for a routine consult.
[2021-03-11] MEDS ORDERED: LIOTHYRONINE 5 MCG TABLET. PO SCH ×2 (06:00→09:00)
[2021-03-11] MEDS ORDERED: LEVOTHYROXINE 50 MCG TABLET PO SCH ×2 (06:00→09:00)
[2021-03-11 06:33] VITALS: BP 100/54
[2021-03-11 06:34] LABS: HEMATOCRIT 32.3 % (36.0-47.0); HEMOGLOBIN 10.3 g/dL (12.0-15.5); RED BLOOD COUNT 4.02 x10^6/uL (3.50-5.40); RED CELL DISTRIBUTION WIDTH 16.4 % (11.5-14.5); WHITE BLOOD COUNT 8.1 x10^3/uL (4.0-11.0)
[2021-03-11 06:51] LABS: ALBUMIN 2.8 g/dL (3.4-5.0); ALBUMIN/GLOBULIN RATIO 0.9 (1.0-1.7); CALCIUM 8.7 mg/dL (8.5-10.1); CREATININE 1.1 mg/dL (0.6-1.0); GFR 49.1; POTASSIUM 3.8 mmol/L (3.5-5.1); TOTAL BILIRUBIN 0.3 mg/dL (0.2-1.0)
[2021-03-11] MEDS: SUMAtriptan SUCCINATE 50 MG TABLET PO PRN (08:12)
[2021-03-11] MEDS: MIDODRINE 5 MG TABLET PO SCH (08:13)
[2021-03-11] MEDS ORDERED: CRANBERRY EXTRACT PO SCH (09:00)
[2021-03-11] MEDS ORDERED: FLUCONAZOLE 100 MG TABLET. PO SCH (09:00)
[2021-03-11] MEDS ORDERED: POLYETHYLENE GLYCOL 3350 17 GM PACKET. PO SCH (09:00)
[2021-03-11] MEDS ORDERED: ASPIRIN CHEWABLE 81 MG TABLET. PO SCH (09:00)
[2021-03-11] MEDS ORDERED: CHOLECALCIFEROL (VITAMIN D3) 1,000 UNIT TABLET PO SCH ×2 (09:00→09:45)
[2021-03-11] MEDS ORDERED: VIT C PO SCH (09:00)
[2021-03-11] MEDS ORDERED: VENLAFAXINE 50 MG TABLET. PO SCH (09:00)
[2021-03-11 11:01] VITALS: BP 122/81
--- NOTE | 2021-03-11 14:39 | RAD ---
EXAM: Carotid Doppler sonogram. HISTORY: Syncope. TECHNIQUE: Menezes scale and color Doppler sonographic evaluation of the neck with spectral waveform josh lysis was performed and static images are submitted for review. FINDINGS: There is mild atherosclerotic plaque within the right greater than left carotid bifurcation s. The peak systolic velocity within the right common carotid artery is 129 cm/sec. The peak systolic ve locity within the right internal carotid artery is 96 cm/sec and the end diastolic velocity within th e right internal carotid artery is 30 cm/sec. The right ICA/CCA ratio is less than 1.0. The peak systolic velocity within the left common carotid artery is 131 cm/sec. The peak systolic juanpablo ocity within the left internal carotid artery is 106 cm/sec and the end diastolic velocity within the left internal carotid artery is 29 cm/sec. The left ICA/CCA ratio is less than 1.0. There is normal antegrade flow within both vertebral arteries. IMPRESSION: Doppler findings suggesting less than 50 percent stenosis involving the internal carotid arteries. PQRS Compliance Statement - Stenosis calculations for CT, MR and conventional angiography are based u kiko measurement of the distal ICA diameter in accordance with the NASCET methodology. Stenosis calcu lations for carotid ultrasound studies are derived from validated velocity criteria which are known t o correlate with the NASCET methodology. Electronically signed by: Jada Mancini MD (03/11/2021 2:36 PM) [facility]
--- NOTE | 2021-03-11 15:15 | NUR ---
Discharge note pt discharged at 1513 via ambulation accompanied by friend. written and verbal education given with verbal statement of understanding received.
--- NOTE | 2021-03-11 16:20 | RAD ---
EXAMINATION: US BILATERAL LOWEREXTREMITY VENOUS DOPPLER (LOWER EXTREMITY VENOUS ULTRASOUND) CLINICAL HISTORY: Bilateral lower extremity edema TECHNIQUE: Sonographic grayscale images obtained of the bilateral lower extremity deep venous systems with color flow Doppler, compression, and augmentation techniques as indicated. Images obtained and stored in a permanent archive. COMPARISON: None FINDINGS: RIGHT: No evidence of absent flow or incompressibility within the common femoral vein, femoral vein, or popl iteal vein. Visualized calf veins appear patent on limited evaluation. LEFT: No evidence of absent flow or incompressibility within the common femoral vein, femoral vein, or popl iteal vein. Visualized calf veins appear patent on limited evaluation. IMPRESSION: No evidence of bilateral lower extremity DVT. Electronically signed by: Andres Eagle DO (03/11/2021 4:17 PM) [id number]
--- NOTE | 2021-03-11 17:00 | PDOC ---
PROVIDER NOTE PROVIDER NOTE PROVIDER NOTE Cardiology consultation note: History of present illness: 71-year-old woman who presented to the hospital in the setting of near syncopal episode. She reports that she has had a several year history of recurrent syncope and has been extensively evaluated most recently through [facility] and reports no obvious cardiac pathology. She had a recurrent episode of this problem and was found to be hypotensive with dehydration in the setting of torsemide use. Currently she feels much better and denies any chest pain, dyspnea, orthopnea or PND. She lives at home by herself. Past medical history PAST MEDICAL HISTORY: Significant for chronic hypotension, hyperlipidemia, chronic kidney disease stage 3A, and neurogenic bladder for the last 11 years requiring self-catheterization. She has a history of hepatitis B, hypothyroidism, gastroesophageal reflux disease, and generalized osteoarthritis. PAST SURGICAL HISTORY: Significant for 3 gastric surgeries. She has bilateral cataract extraction and tonsillectomy. According to her, she has 2 nose surgeries, appendectomy, cholecystectomy, total abdominal hysterectomy, bilateral salpingo-oophorectomy, arthroscopic surgery for both knees, and 5 back surgeries and also what seemed to be thoracotomy and pleurodesis on the left side. She also has a history of nephrolithiasis that required lithotripsy. ALLERGIES: SHE IS ALLERGIC TO PENICILLIN, SULFA DRUGS, CEPHALEXIN, AND LEVOFLOXACIN. Review of systems is negative for 10 out of 14 systems reviewed unless otherwise mentioned above in HPI Current cardiovascular occasions Aspirin atorvastatin and midodrine Physical examination The patient appeared well nourished and normally developed. Head exam is unremarkable. No scleral icterus or corneal arcus noted. Neck is without jugular venous distension, thyromegaly, or carotid bruits. Carotid upstrokes are brisk bilaterally. Lungs are clear to auscultation and percussion. Cardiac exam reveals the PMI to be normally sized and situated. Rhythm is regular. First and second heart sounds normal. No murmurs, rubs or gallops. Abdominal exam reveals normal bowel sounds, no masses, no organomegaly and no aortic enlargement. Extremities are nonedematous and both femoral and pedal pulses are normal. Msk: No traumua Neuro: No focal deficits Labs, diagnostic studies reviewed EKG is unremarkable Telemetry is unremarkable Impression: 1. Near syncope likely related to autonomic dysfunction 2. Hyperlipidemia 3. CKD 4. Neurogenic bladder Recommendations: 1. At this present time no obvious cardiovascular pathology is noted based on her EKG, telemetry and based on her history provided by the patient it appears that she does not have any organic pathology from a cardiac standpoint. We will obtain her outside hospital records for review. She will follow-up with us in the office. Supportive care for now. Thank you for the consultation. Discussed with Dr. Hart Justification of Admission: Justification of Admission: Justification of Admission Dx: N/A JAQUELIN CASEY MD Mar 11, 2021 17:00
--- NOTE | 2021-03-11 19:12 | DS ---
DATE OF DISCHARGE: 03/11/2021 HOSPITAL COURSE: The patient is a 71-year-old female patient, who was admitted with a syncopal episode. She apparently has fainted while in the [employer] and sustained about 20 chest compressions before waking up and yelling at staff, she apparently has multiple syncopal episodes. In the New Year, she said she has had 3 syncopal episodes; in the second day, she has 2. She apparently has been investigated in multiple hospitals before and she is currently on midodrine for chronic hypotension. She also has neurogenic bladder requiring self-catheterization. Initial evaluation showed that the patient was dehydrated. In fact, she has leukocytosis with white cell count of 12,000. Initially, her sodium was high at 147. BUN and creatinine were also elevated. I did hold her Lasix, started on normal saline and she did well. We did consult the assembly machine tender and apparently has had bilateral venous Doppler ultrasounds that were negative, although that was the impression of the dairy lab technician. She has also bilateral carotid Doppler ultrasound, the results of which are still pending. She was seen by the assembly machine tender and basically requested the records from other hospitals and she will be seen as an outpatient at the [facility] after discharge. PHYSICAL EXAMINATION: GENERAL: When I saw her today, she looked well and was clearly in no apparent respiratory distress. No pallor, jaundice, cyanosis or thyromegaly. No jugular venous distension. No lower limb edema. VITAL SIGNS: Her heart rate was 93, blood pressure was 122/81, temperature was 98.1, respiratory rate was 16, and oxygen saturation was 97% on room air. HEAD, EYES, EARS, NOSE AND THROAT: Showed normocephalic, atraumatic. NECK: Supple. HEART: Normal first and second heart sounds. No gallop, rub or murmur. CHEST: Clear to auscultation. No crepitation or rhonchi. ABDOMEN: Distended, soft. NEUROLOGIC: She is awake, alert, responding appropriately. All cranial nerves intact. She moves extremities without difficulty. Her intake and output are incompletely recorded. LABORATORY DATA: Her lab work this morning showed a serum sodium 144, potassium 3.8, chloride 110, bicarbonate 26, anion gap of 10, BUN 25, creatinine 1.1, estimated GFR was 49 mL per minute. Her glucose was 98, calcium was 8.7. Total bilirubin, AST, ALT, alkaline phosphatase were normal. Total protein 6, albumin was 2.8. Urinalysis showed the urine was yellow, cloudy with a pH of 5.5, specific gravity 1.010. The urine was negative for protein, glucose, ketones, trace of blood, large amount of leukocyte esterase, 1-2 rbc's, more than 40 wbc's, and many bacteria. DISCHARGE MEDICATIONS: The patient was discharged home to continue on all her medications including aspirin 81 mg once a day, atorvastatin calcium 10 mg at bedtime, cholecalciferol (vitamin D3) 50 mcg once a day, cranberry extract for AZO cranberry softgel one capsule daily, gabapentin 800 mg at bedtime, hydrocodone and ibuprofen one tablet every 6 hours, levothyroxine sodium 50 mcg once a day, liothyronine 5 mcg once a day, midodrine 10 mg 3 times a day as needed, ondansetron for Zofran 8 mg 4 times a day as needed, polyethylene glycol 17 grams daily p.r.n. for constipation, potassium chloride 10 mEq twice a day, sumatriptan for Imitrex 50 mg once or twice a day, tamsulosin for Flomax 0.4 mg at bedtime, temazepam 15 mg at bedtime, tizanidine 2 mg every 8 hours, torsemide 10 mg once a day, trazodone 150 mg at bedtime and venlafaxine for Effexor 150 mg daily. FINAL DISCHARGE DIAGNOSES: 1. Syncopal episode. 2. Acute kidney injury and dehydration. 3. Chronic hypotension. 4. Neurogenic bladder requiring self-catheterization. 5. She has multiple other medical problems including: A. Hyperlipidemia. B. Chronic kidney disease. C. History of hepatitis B. D. Hypothyroidism. E. Gastroesophageal reflux disease. F. Osteoarthritis. G. Migraine headache. The patient will follow with Dr. Muniz and her records were requested from other hospitalists. JADEN HICKS MD DR: JERAD/gigi JOB#: [id number] / [id number]
== END 2021-03-11 15:13 | disposition home or self-care (01) | DRG 640 ==
LOC: ER 09:57 → 1 SOUTH 12:06
PROVIDERS: ADMIT Internal Medicine; ATTEND Internal Medicine
DX: E86.0 Dehydration (principal); N17.0 Acute kidney failure with tubular necrosis; N39.0 Urinary tract infection, site not specified; F05 Delirium due to known physiological condition; E03.9 Hypothyroidism, unspecified; E78.00 Pure hypercholesterolemia, unspecified; E78.5 Hyperlipidemia, unspecified; G43.909 Migraine, unspecified, not intractable, without status migrainosus; G89.29 Other chronic pain; G90.9 Disorder of the autonomic nervous system, unspecified; I95.89 Other hypotension; K21.9 Gastro-esophageal reflux disease without esophagitis; M15.9 Polyosteoarthritis, unspecified; N18.31 Chronic kidney disease, stage 3a; N31.9 Neuromuscular dysfunction of bladder, unspecified; Z80.0 Family history of malignant neoplasm of digestive organs; Z80.8 Family history of malignant neoplasm of other organs or systems; Z82.0 Family history of epilepsy and other diseases of the nervous system; Z87.442 Personal history of urinary calculi; Z90.710 Acquired absence of both cervix and uterus; Z98.41 Cataract extraction status, right eye; Z98.42 Cataract extraction status, left eye; F41.9 Anxiety disorder, unspecified; Z88.0 Allergy status to penicillin; Z88.2 Allergy status to sulfonamides; Z88.8 Allergy status to other drugs, medicaments and biological substances
CPT/HCPCS: 36415; 71045; 80053; 81001; 84484; 85025; 85027; 87077; 87086; 87186; 93005; 93880; 93970; 96361; 96365; 96375; J0696; J2405; 99285-25; J7030

== ENCOUNTER → 2021-08-08 | Outpatient (CLI) | payer MEDICARE ==
[~2021-08-08] MED LIST changes: +ASPI-630 PO; +ATOR10TA60 PO; +CHOL200010 PO; +CRAN1CAP12 PO; +GABA800T PO; +LEVO50TA PO; +LIOT5TAB4 PO; +MIDO10TA PO; +POLY119P19 PO; +POTA10TA5 PO; +SUMA50TA3 PO; +TEMA15CA6 PO; +TIZA4TAB2 PO; +TORS10TA3 PO; +TRAZ150T49 PO; +VENL150C PO
--- NOTE | 2021-08-08 12:03 | RAD ---
EXAM: XR CERVICAL SPINE 2-3V 08/08/2021 9:29 AM CLINICAL INDICATION: Chronic neck pain, trouble swallowing, swelling in throat COMPARISON: None TECHNIQUE: AP, lateral, and odontoid views of the cervical spine FINDINGS: The cervical spine is normal in alignment. There is no acute fracture. Disc spaces are rabia ntained. There is mild facet arthrosis. Prevertebral soft tissues normal. IMPRESSION: 1. No acute osseous abnormality or significant degenerative disc disease. 2. Mild facet arthrosis. Electronically signed by: Rafaela Smith MD (08/08/2021 12:01 PM) [id number]
--- NOTE | 2021-08-08 14:03 | RAD ---
EXAM: ULTRASOUND SOFT TISSUE NECK CLINICAL HISTORY: Chronic neck pain, difficulty swallowing, left neck pain and fullness. COMPARISON: None available. TECHNIQUE: Grayscale and color Doppler ultrasound evaluation of the left neck in the area of concern. FINDINGS: There is no soft tissue mass, fluid collection, or lymphadenopathy in the area of concern in the left neck. IMPRESSION: No sonographic abnormality in the area of concern in the left neck. Electronically signed by: Rafaela Smith MD (08/08/2021 2:00 PM) [id number]
== END ==
LOC: US 09:16
PROVIDERS: ATTEND Family Medicine
DX: M47.812 Spondylosis without myelopathy or radiculopathy, cervical region (principal); R59.0 Localized enlarged lymph nodes
CPT/HCPCS: 72040; 76536